=== PATIENT | female | born 1960 | race Native Hawaiian/Other Pacific Islander ===

== ENCOUNTER 2019-04-21 11:12 | Emergency (ER) | payer OTHER ==
[~2019-04-21] VITALS: Ht 177.8 cm; Wt 72.6 kg
[2019-04-21 11:21] VITALS: BP 134/78
[2019-04-21] MEDS ORDERED: predniSONE 20 MG TABLET PO ONE (12:30)
[2019-04-21] MEDS ORDERED: ALBUTEROL FS 2.5 MG/3 ML VIAL.NEB NEB ONE (12:30)
[2019-04-21] MEDS ORDERED: ALBUTEROL FS 2.5 MG/3 ML VIAL.NEB ONE (12:35)
[2019-04-21] MEDS ORDERED: predniSONE 20 MG TABLET ONE (12:51)
== END 2019-04-21 13:26 | disposition home or self-care (01) ==
LOC: ER 11:14
DX: J20.9 Acute bronchitis, unspecified (principal)
CPT/HCPCS: 93005; 94640; 99283; J7512